=== PATIENT | male | born 1955 | race Caucasian/White ===

== ENCOUNTER → 2021-04-20 | Outpatient (CLI) | payer MEDICARE, OTHER ==
--- NOTE | 2021-04-20 08:42 | US ---
EXAMINATION TYPE: US duplex aorta DATE OF EXAM: 04/20/2021 COMPARISON: NONE CLINICAL HISTORY: Z13.6 Screening for AAA. High cholesterol- on medication. Former smoker. No HTN. No family hx. EXAM MEASUREMENTS: Abdominal Aorta: Proximal: 2.6 x 2.5 cm Mid: 2.0 x 2.0 cm Distal: 1.8 x 1.7 cm Bifurcation: Right- 0.8 x 1.0 cm Left- 0.7 x 0.9 cm Limited visualization of proximal or mid aorta due to overlying bowel gas. No AAA visualized at time of scan. IMPRESSION: No evidence for AAA
== END | disposition home or self-care (01) ==
LOC: RADUSWWP 07:58
PROVIDERS: ATTEND Family Medicine
DX: Z13.6 Encounter for screening for cardiovascular disorders (principal)
CPT/HCPCS: 93979